=== PATIENT | male | born 1960 | race Caucasian/White ===

== ENCOUNTER 2023-06-24 09:27 | Day surgery (SDC) | payer BC ==
[2023-06-15 09:00] LABS: Absolute Eosinophils 0.1 K/uL (0-0.5); Absolute Lymphocytes (CBC) 1.2 K/uL (0.7-4.9); Absolute Monocytes 0.6 K/uL (0.1-1.3); Absolute Neutrophil 4.4 K/uL (1.8-8.0); Basophils % 0.7 % (0-1.3); Eosinophils % 2.1 % (0-4.4); Hematocrit 42.3 % (39.6-49.0); Hemoglobin 14.1 g/dL (13.6-17.9); MCH 32.3 pg (27.0-35.0); MCHC 33.4 g/dL (32.0-36.0); MCV 96.6 fL (80-100); MPV 9.2 fL (7.6-11.3); Monocytes % 8.9 % (3.3-12.3); Neutrophils % 69.3 % (41.7-73.7); Platelets 137 thou/uL (152-406); RBC Red Blood Cell Count 4.38 M/uL (4.33-5.43); Red Cell Distribution Width 14.4 % (12.1-15.2)
[2023-06-15 09:16] LABS: Anion Gap 4.9 mEq/L (5.0-15.0)
[2023-06-15 09:19] LABS: Potassium 4.9 mEq/L (3.5-5.1)
[2023-06-15 09:23] LABS: PT Prothrombin Time 52.3 SECONDS (9.5-12.5); PTT, Activated Partial Thromb 54.4 SECONDS (24.3-36.9); Protime INR 4.98
[2023-06-24] MEDS: Ringers Lactate 1,000 ML IV ONE (10:00)
[2023-06-24] MEDS ORDERED: LIDOCAINE 1% MPF 5 ML VIAL ONE (11:49)
[2023-06-24] MEDS ORDERED: propofoL 200 MG/20 ML VIAL IV ONE (11:49)
[2023-06-24 15:09] VITALS: BP 112/76; TEMP 97.1; O2SAT 98
== END 2023-06-24 13:18 | disposition home or self-care (01) ==
LOC: OR 09:27
PROVIDERS: ATTEND Surgery
PROC: 0DBN8ZX Excision of Sigmoid Colon, Via Natural or Artificial Opening Endoscopic, Diagnostic (ICD-10-PCS; principal; 2023-06-24 11:00)
DX: Z12.11 Encounter for screening for malignant neoplasm of colon (principal); K64.8 Other hemorrhoids; K63.5 Polyp of colon
CPT/HCPCS: 45380; 85025; 80048; 36415; 85610; 88304; 85730; J2704; J2001; J7120